=== PATIENT | female | born 1985 | race African-American/Black ===

== ENCOUNTER 2022-05-26 20:47 | Emergency (ER) | payer OTHER, MEDICAID ==
[~2022-05-26] VITALS: Ht 172.7 cm; Wt 78.0 kg
[2022-05-26] MEDS ORDERED: ASPIRIN 81MG TABLET PO ONE (21:30)
[2022-05-26 21:50] LABS: BASOPHILS % 0.8 % (0.0-2.0); EOSINOPHILS % 3.6 % (0.0-5.0); HEMATOCRIT. 35.9 % (36.0-48.0); HEMOGLOBIN. 11.7 g/dL (12.0-16.0); LYMPHOCYTES % 30.2 % (20.0-50.0); MEAN CORPUSCULAR HEMOGLOBIN 28.8 pg (28.0-32.0); MEAN CORPUSCULAR VOLUME 88.1 fL (81.0-99.0); MEAN PLATELET VOLUME 6.9 fl (7.4-10.4); MONOCYTES % 7.5 % (2.0-8.0); NEUTROPHILS % 57.9 % (40.0-76.0); PLATELET 354 x1000/uL (130-400); RED BLOOD CELL COUNT 4.07 mill/uL (4.2-5.4); RED CELL DISTRIBUTION WIDTH 14.2 % (11.6-14.6)
[2022-05-26 21:58] LABS: CHLORIDE 104 mEq/L (98-107)
[2022-05-26] MEDS ORDERED: ASPIRIN 81MG TABLET PO NR (23:45)
[2022-05-27 12:00] VITALS: BP 116/74
== END 2022-05-27 12:03 | disposition home or self-care (01) ==
LOC: ER 20:47
DX: R07.89 Other chest pain (principal); F41.9 Anxiety disorder, unspecified
CPT/HCPCS: 36415; 71045; 80053; 83880; 84484; 85025; 93005; 99285; Z7610